=== PATIENT | male | born 1995 | race Caucasian/White ===

== ENCOUNTER 2017-03-14 22:09 | Emergency (ER) | payer BC, OTHER ==
[~2017-03-14] VITALS: Ht 203.2 cm; Wt 104.3 kg
[2017-03-14] MEDS ORDERED: TETANUS,DIPTH,PERTUSS P/F (BOOSTRIX) 0.5 ML VIAL IM STA (23:21)
--- NOTE | 2017-03-14 23:26 | ED Upper Extremity ---
General Chief Complaint: Laceration Stated Complaint: THUMB LAC Nursing Triage Note: PT STATES HE WAS AT WORK AT [employer] AND AT APPROX. 2130 HE CUT HIS LEFT THUMB WITH A KNIFE. THUMB CONTINUES TO BLEED WHEN PRESSURE IS LET OFF THE LACERATION. 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 He is right-hand dominant denies any previous histories of injuries to the left thumb. He is uncertain of the date of his last tetanus vaccine but reports been more than 5 years. Onset: just prior to arrival Pain/Injury Location: left thumb Method of Injury: incised Allergies and Home Medications Allergies Coded Allergies: No Known Drug Allergies (Unverified , 03/14/17) Constitutional: no symptoms reported, see HPI Skin: see HPI, other (superficial laceration ulnar side of the left thumb, trace active bleeding.) All Other Systems Reviewed Negative Unless Noted: Yes Past Oxoxaxj-Hvslld-Fbpulw Hx Patient Social History Alcohol Use: Denies Use Recreational Drug Use: No Smoking Status: Never a Smoker 2nd Hand Smoke Exposure: No Recent Foreign Travel: No Contact w/Someone Who Travel: No Recent Infectious Disease Expo: No Recent Hopitalizations: No Physical Abuse: No Sexual Abuse: No Immunizations Up To Date Tetanus Booster (TDap): Unknown PED Vaccines UTD: No Seasonal Allergies Seasonal Allergies: Yes Surgeries History of Surgeries: No Respiratory History of Respiratory Disorde: Yes Respiratory Disorders: Asthma Cardiovascular History of Cardiac Disorders: No Neurological History of Neurological Disord: No Genitourinary History of Genitourinary Disor: No Gastrointestinal History of Gastrointestinal Di: No Musculoskeletal History of Musculoskeletal Dis: No Endocrine History of Endocrine Disorders: No HEENT History of HEENT Disorders: No Cancer History of Cancer: No Psychosocial History of Psychiatric Problem: No Suicide Risk Score: 0 Integumentary History of Skin or Integumenta: No Blood Transfusions History of Blood Disorders: No Reviewed Nursing Assessment Reviewed/Agree w Nursing PMH: Yes Physical Exam Vital Signs Vital Sign - Last 12Hours 03/14/17 22:50 Temp 98.1 Pulse 69 Resp 20 B/P (MAP) 138/88 Pulse Ox 98 O2 Delivery Room Air Capillary Refill : Less Than 3 Seconds General Appearance: WD/WN, no apparent distress Cardiovascular: normal peripheral pulses, regular rate, rhythm Respiratory: chest non-tender, lungs clear Hand: non-tender, normal ROM, Left, abrasions (0.5 superficial laceration left thumb, distal, ulnar side. No active bleeding well approximated wound. Cleaned with sterile saline and Hibiclens.) Neurologic/Tendon: normal sensation, normal motor functions, normal tendon functions Neurologic/Psychiatric: no motor/sensory deficits, alert, normal mood/affect, oriented x 3 Progress/Results/Core Measures Results/Orders My Orders Orders - AMANDA GREENE Dipht,Pertuss(Acell),Tet Adult (Boostrix (03/14/17 23:21) Vital Signs/I&O Vital Sign - Last 12Hours 03/14/17 22:50 Temp 98.1 Pulse 69 Resp 20 B/P (MAP) 138/88 Pulse Ox 98 O2 Delivery Room Air Blood Pressure Mean: 105 Progress Note : Time: 23:00 Progress Note Wound dried thoroughly 2 Steri-Strips placed with Mastisol. Bulky compressive dressing applied. Departure Impression Impression: Primary Impression: Abrasion of left thumb Qualified Codes: S60.312A - Abrasion of left thumb, initial encounter Disposition: HOME, SELF-CARE Condition: Improved Departure-Patient Inst. Decision time for Depature: 23:10 Patient Instructions: Skin Abrasions (DC) Add. Discharge Instructions: Keep compressive dressing on for 24 hours. Then may apply Band-Aid. Leave Steri-Strips in place until there curled up and falling off. Follow-up at [facility] early next week. Return to emergency department for increased pain left thumb or new problems. All discharge instructions reviewed with patient and/or family. Voiced understanding. Copy Copies To 1: LENNY AKHTAR MD, AMY ARNP Mar 14, 2017 23:26
[2017-03-14 23:37] VITALS: BP 138/88
== END 2017-03-14 23:37 | disposition home or self-care (01) ==
LOC: ER 22:11
DX: S61.312A Laceration without foreign body of right middle finger with damage to nail, initial encounter (principal); J45.909 Unspecified asthma, uncomplicated; Z23 Encounter for immunization; W26.0XXA Contact with knife, initial encounter
CPT/HCPCS: 90471; 90715; 99284